=== PATIENT | female | born 1970 ===

== ENCOUNTER 2025-08-05 08:52 | Outpatient (AMB) | payer OTHER, SELFPAY ==
--- NOTE | 2025-08-05 08:55 | A.PHYSOV_ITS ---
Vital Signs 08/05/25 08:58 Height 4 ft 11 in Weight 172 lb BMI 34.7 Intake Visit Reasons: B/L KNEE INJECTIONS Intake Note: Patient is a 55 year old female here for bilateral knee injection. 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 Allergies No Known Allergies Allergy (Verified 07/27/25 15:00) [facility] Surgical History S/P coronary artery stent placement Social History Alcohol intake: current Alcohol intake frequency: holidays/special occasions only Patient Tobacco Use Status: Never used Tobacco Physical Exam Vital Signs: BMI result Body Mass Index 34.7 Office Procedures AMB Knee Injection AMB Knee Injection Procedure Details: Bilateral Knee injection: The risks, benefits and complications of the left knee injection were discussed with the patient including but not limited to increased serum glucose, infection, nerve pain, fat atrophy, pigment augmentation, bleeding and pain. All questions were answered to the patient's satisfaction. Verbal consent was obtained. The patient was eager to proceed. Using aseptic technique with Betadine, ethyl chloride was then used to desensitize the skin. Using a 22-gauge needle 40 mg of Kenalog and 3 mL 2% lidocaine were injected into the knee joint. A Band-Aid was applied. Patient tolerated the procedure well without immediate complication. Postinjection instructions were given. The procedure was repeated on the right. Knee Injection - : Bilateral All charges added?: Procedure code (CPT) selection complete Office Meds Kenalog 40 mg/mL suspension for injection Performing Provider: JUDY Goff [facility] Administered by: JUDY Goff on 08/05/25 09:14 Dose Route Admin Location Dispensed Lot Number Expiration Date [facility] [employer] 40 mg intra-articular 1 mL [id number] [employer] Total Dispensed Waste 1 mL 0 % lidocaine (PF) 20 mg/mL (2 %) injection solution Performing Provider: JUDY Goff [facility] Administered by: JUDY Goff on 08/05/25 09:14 Dose Route Admin Location Dispensed Lot Number Expiration Date [facility] [employer] 60 mg intra-articular 50 mL [id number] Total Dispensed Waste 50 mL 0 % Assessment & Plan Assessment & Plan (1) Bilateral primary osteoarthritis of knee: Code(s): M17.0 - Bilateral primary osteoarthritis of knee Category: Medical Plan Ms. Robin is a 55-year-old female seen in evaluation today for bilateral knee osteoarthritis. Today she consented to bilateral knee corticosteroid injection. She was given post-injection instructions, recommend: Moist heat compresses for 15 minutes up to 5 times daily. Continue low-impact activities such as walking, biking and swimming. Follow-up with our office as needed Thank you for allowing me to participate in the care of your patient. Orders: Orders AMB Knee Injection Today M17.0 - Bilateral primary osteoarthritis of knee Coding Level of Care Code Procedure Only Diagnoses Bilateral primary osteoarthritis of knee M17.0 CPT Codes AMB Knee Injection - Hip/Bursa Injection - : Bilateral ([id number])
[2025-08-05 08:58] VITALS: BMI 34.7
--- OUTSIDE RECORDS SUMMARY | 2025-08-05 10:00 | XMS_ITS ---
Author Name [facility] Organization Unknown Care Team Organization Name Specialty Phone Email Start Date End Da constantin [facility] 07/13/2022 04/23/2024
--- OUTSIDE RECORDS SUMMARY | 2025-08-05 10:00 | XMS_ITS | Encounter Summary ---
Author Organization [facility] Address [address] [place] [address] Care Team Providers Care High Speed Operator Name Role Phone Nikki Miramontes MD Primary Care Provider [phone] Encounter Details Date Type Department Care Team (Late Contact Info) Description 07/24/2025 Results Follow-Up Gastroenterology - [address] [phone] Elana Miguel NP [address] [address] Social History Tobacco Use Types Packs/Day Years Used Date Smoking Tobacco: Never Smokeless Tobacco: Never Alcohol Use Standard Drinks/Week Comments Yes 0 (1 standard drink = 0.6 oz pur e alcohol) Comments No Sex and Gender Information Value Date Recorded Sex Assigned at Not on file Legal Sex Female 12:03 PM EST Gender Identity Not on file Sexual Orientation Not on file documented as of this encounter Plan of Treatment Upcoming Encounters Date Type Department Care Team (Late st Contact Info) Description 11/29/2025 9:20 AM EDT Office Visit [facility] [address] [facility] [address] [place] [phone] Shaq Tucker MD [address] [place] [address] [address] [place] [phone] documented as of this encounter Visit Diagnoses Not on filedocumented in this encounter Care Teams High Speed Operator Relationship Specialty Start Date End Date Nikki Miramontes MD [address] [facility] [place] [phone] PCP - General Internal Medicine 04/19/25 documented as of this encounter
--- OUTSIDE RECORDS SUMMARY | 2025-08-05 10:00 | XMS_ITS | Clinical Summary ---
Author Organization [place] [id number] Gu[address] jaime [facility] Building Address [address] [place] [address] Phone Care Team Providers Care Fabrication Lead Name Role Phone Nikki Miramontes MD Primary Care Provider [phone] Allergies No known active allergies Medications aspirin 81 mg chewable tablet Chew 1 tablet (81 mg total) 1 (one) time each day. 06/28/20 17 Active dulaglutide (Trulicity) 3 mg/0.5 mL pen injector injection Inject 3 mg as directed once a week 05/03/20 24 Active ezetimibe (ZETIA) 10 mg tablet Take 1 tablet (10 mg total) by mouth 1 (one) time each day. 04/24/20 24 Active glucose blood test strip USE TO TEST BLOOD SUGAR TWO TIMES A DAY 03/07/20 24 Active blood-glucose meter kit USE TO TEST BLOOD SUGAR TWO TIMES A DAY 09/20/19 20 Active UNABLE TO FIND Blood Glucose Calibration (EASY TOUCH HEALTHPRO CONTROL) Solution, Use to test machine .DX-E11.65 NIDDM. 12/25/19 17 Active lancets (Easy Touch Twist Lancets) 33 gauge misc Apply 1 Each topically 2 times daily. To test blood sugar.DX-E11.65 ,NIDDM. 12/25/19 17 Active ferrous sulfate 325 mg (65 mg elemental iron) tablet Take 1 tablet (325 mg total) by mouth 2 (two) times a day. 60 each 2 09/30/19 25 Active pantoprazole (PROTONIX) 20 mg EC tablet TAKE ONE TABLET BY MOUTH ONCE DAILY 90 tablet 1 11/22/19 25 Active metoprolol tartrate (LOPRESSOR) 25 mg tablet TAKE 1/2 TABLET BY MOUTH TWO TIMES A DAY 90 tablet 04/15/20 25 Active glipiZIDE (GLUCOTROL) 5 mg tablet TAKE ONE TABLET BY MOUTH TWO TIMES A DAY BEFORE MEALS 180 tablet 06/18/20 25 Active pravastatin (PRAVACHOL) 10 mg tabletIndicati ons:Hyperlipid emia with target LDL less than 100 Take 1 tablet (10 mg total) by mouth 1 (one) time each day. 90 tablet 06/19/20 25 Active meloxicam (MOBIC) 7.5 mg tablet TAKE ONE TABLET BY MOUTH ONCE DAILY NEEDED FOR PAIN 90 tablet 07/04/20 25 Active metFORMIN (GLUCOPHAGE) 1,000 mg tablet TAKE ONE TABLET BY MOUTH TWICE A DAY WITH MEALS 180 tablet 07/16/20 25 Active lisinopriL (PRINIVIL,ZEST RIL) 2.5 mg tablet TAKE ONE TABLET BY MOUTH EVERY DAY 90 tablet 07/16/20 25 Active lisinopriL (PRINIVIL,ZEST RIL) 2.5 mg tablet TAKE ONE TABLET BY MOUTH ONCE DAILY 90 tablet 04/17/20 25 025 Discontinued metFORMIN (GLUCOPHAGE) 1,000 mg tablet TAKE ONE TABLET BY MOUTH TWICE A DAY WITH MEALS 180 tablet 04/17/20 25 025 Discontinued Active Problems Problem Noted Date Diagnosed Date PAD (peripheral artery disease) ([facility] V24) Assessment & Plan (01/31/2025 3:11 PM EDT): Continue aspirin and statin therapy. She will follow-up with vascular surgery. Orders: Ambulatory referral to Vascular Surgery; Future Anemia 07/30/2024 Assessment & Plan (01/31/2025 3:11 PM EDT): We will check her expressed to her the importance of following up with gastroenterology. Referral to GI placed. Continue iron supplements. Avoid NSAIDs. She states she only uses meloxicam as needed. Vies her to stop but she does not want to. She is on pantoprazole. Orders: Ambulatory referral to Gastroenterology; Future Microalbuminuria 10/13/2020 GERD (gastroesophageal reflux disease) 8 Old CO (myocardial infarction) 05/12/2018 Assessment & Plan (01/31/2025 3:11 PM EDT): She denies any anginal symptoms. Clinically she is euvolemic. I placed referral to cardiology for routine follow-up. Continue current regimen of aspirin, ezetimibe, pravastatin, metoprolol, lisinopril. Orders: Ambulatory referral to Cardiology; Future Presence of stent in LAD coronary artery 018 DM (diabetes mellitus), type 2 with renal complications ([facility] V24, [facility] V28) 12/24/2016 Assessment & Plan (01/31/2025 3:11 PM EDT): She will follow diabetic diet. Will check her A1c levels. Continue dulaglutide, metformin, glipizide. She is on KAILA inhibitor for microalbuminuria. Orders: Hemoglobin A1c; Future Basic metabolic panel; Future Lipid panel with reflex to direct LDL; Future Aspartate aminotransferase; Future Alanine aminotransferase; Future Fibroids 10/19/2010 Menorrhagia 10/19/2010 Choroidal nevus 11/18/2009 Hyperlipidemia with target LDL less than 100 Overview (07/30/2024): IMO update Obesity 08/09/2008 Encounters Date Type Department Care Team Description 07/29/2025 Telephone [facility] - [address] [place] [phone] Nikki Miramontes MD 07/25/2025 Telephone Internal Medicine - [address] [phone] Aide Klein [place] 07/24/2025 Results Follow-Up Gastroenterology - [address] [place] [phone] Elana Miguel NP 07/19/2025 10:25 AM EST Lab Draw Station - [address] Anemia due to vitamin B12 deficiency, unspecified B12 deficiency type; Type 2 diabetes mellitus with diabetic microalbuminuria, without long-term current use of insulin ([facility] V24, [facility] V28) 07/19/2025 Results Follow-Up Internal Medicine - [place] [address] [place] [phone] Nancy Pandya [place] 06/28/2025 10:00 AM EDT Consult Gastroenterology - [place] [address] [place] [address] Elana Miguel, JOHN Anemia due to vitamin B12 deficiency, unspecified B12 deficiency type (Primary Dx) from Last 3 Months Immunizations Immunization Administration Dates Next Due H1N1 Inj Preservative Free 08/18/2009 Influenza Quadravalent, MDCK , 0.5ml, preservative free (Flucelvax) 6mo and older 07/01/2023,05/11/2019 Influenza Quadravalent, MDCK , 0.5ml, with preservative (Flucelvax) 6mo and older 05/12/2018 Influenza trivalent, 0.5mL, preservative free (Fluarix; FluLaval; Fluzone) ages 6mo and older (Afluria) 3 years and older 07/05/2014,08/10/2013,08/04/2012,08/04,08/18/2009 Pneumococcal polysaccharide 23 valent (Pneumovax 23) 2yo and older 01/25/2014 Td Tetanus diptheria (Tdvax) 7yo and older 11/02/2019 Tdap Tetanus diptheria acell ular pertussis (Boostrix; Adacel) 7yo and older 08/09/2008 Surgical History Surgery Date Site/Laterality Comments WISDOM TOOTH EXTRACTION PROCEDURE: HISTORICAL WISDOM TEETH EXTRACTION Medical History Medical History Date Comments Type II or unspecified type diabetes mellitus without mention of complication, uncontrolled 08/18/2009 DX:Type II or unspecified t ype diabetes mellitus without mention of complication, uncontrolled Menorrhagia 10/19/2010 DX:Menorrhagia Fibroids 10/19/2010 DX:Fibroids Old CO (myocardial infarction) 05/12/2018 D X:Old CO (myocardial infarction) GERD (gastroesophageal reflux disease) 05/12/2018 DX:GERD (gastroesophageal reflux disease) GERD (gastroesophageal reflux disease) 05/12/2018 DX:GERD (gastroesophageal reflux disease) Presence of stent in LAD cor onary artery 05/12/2018 DX:Presence of stent in LAD coronary artery DM (diabetes mellitus), type 2 with renal complications ([facility]/HCC V24, CMS/HCC V28) 12/24/2016 DX:DM (diabetes mellitus), t ype 2 with renal complications ([facility]) Microalbuminuria 10/13/2020 DX:Microalbumin uria Anemia DX:Anemia Family History Medical History Relation Name Comments No Known Problems Aunt Diabetes Brother 1 No Known Problems Brother 2 No Known Problems Brother 3 Other: homicide Father No Known Problems Maternal Grandfather Cataracts Maternal Grandmother Hypertension Maternal Grandmother Diabetes Mother Hypertension Mother No Known Problems Other No Known Problems Paternal Grandfather No Known Problems Paternal Grandmother No Known Problems Sister No Known Problems Uncle Blindness Neg Hx Breast cancer Neg Hx Glaucoma Neg Hx Macular degeneration Neg Hx Strabismus Neg Hx Relation Name Status Comments Aunt Brother 1 Alive eldest is healt hy Brother 2 Alive Rafat, younger , diabetic Brother 3 Alive Juan Jose, younger, also diabetic Father murdered in [facility] Maternal Grandfather Maternal Grandmother Alive HTN Mother Alive HTN Other Paternal Grandfather Diabete s Paternal Grandmother Sister Uncle Social History Tobacco Use Types Packs/Day Years Used Date Smoking Tobacco: Never Smokeless Tobacco: Never Tobacco Cessation:Counseling Given: Not Answered Alcohol Use Standard Drinks/Week Comments Yes 0 (1 standard drink = 0.6 oz pur e alcohol) Comments No Sex and Gender Information Value Date Recorded Sex Assigned at Not on file Legal Sex Female 12:03 PM EST Gender Identity Not on file Sexual Orientation Not on file Obstetrics History Last Filed Vital Signs Vital Sign Reading Time Taken Comments Blood Pressure 120/40 06/28/2025 9:48 AM EDT Pulse 73 06/28/2025 9:48 AM EDT Temperature - - Respiratory Rate - - Oxygen Saturation 98% 06/28/2025 9:48 AM EDT Inhaled Oxygen Concentration - - Weight 75.8 kg (167 lb 3.2 oz) 06/28/2025 9:48 A M EDT Height 149.9 cm (4' 11 ) 06/28/2025 9:48 AM EDT Body Mass Index 33.77 06/28/2025 9:48 AM EDT Plan of Treatment Upcoming Encounters Date Type Department Care Team (Late st Contact Info) Description 11/29/2025 9:20 AM EDT Office Visit [facility] - [address] [place] [address] Shaq Tucker MD [address] [place] [address] [address] [place] [phone] Health Maintenance Due Date Last Done Comments Diabetes: Annual Foot Exam 1978 Diabetes: Annual Retina Eye Exam 1978 Hepatitis B Vaccines (1 of 3 - 19+ 3-dose series) 1987 Pneumococcal Vaccine: 50+ Years (2 of 2 - PCV) 01/25/2015 01/25/2014 RSV Immunization Adult Patients (1 - Risk 50-74 years 1-dose series) 2018 Breast Cancer Screening 08/19/2019 08/19/2017 HIV Screening 08/14/2022 Social Influencers of Health Screening 08/14/2022 Depression Screening 09/05/2024 COVID-19 Vaccine ( season) 2025 03/25/2022, 08/19/2021, 11/27/2020, Additional history exists Influenza Vaccine (#1) 2025 , 05/11/2019, 05/12/2018, Additional history exists Cervical Cancer Screening: HPV 06/06/2025 06/06/2020 Diabetes: Annual Urine Albumin-Creatinine Ratio (uACR) 06/07/2025 06/07/2024 Diabetes: Blood Sugar Control Test (HGBA1C) 01/16/2026 07/19/2025, 06/07/2024, 06/07/2024 Diabetes: Annual GFR (Glomerular Filtration Rate) 07/19/2026 07/19/2025, 08/17/2024, 06/07/2024, Additional history exists Cholesterol Screening (Lipid Panel) 07/19/2030 07/19/2025, 08/17/2024, 06/07/2024, Additional history exists DTaP,Tdap,and Td Vaccines (4 - Td or Tdap) 04/15/2032 04/15/2022, 11/02/2019, 08/09/2008 Colorectal Cancer Screening: Colonoscopy 12/29/2032 12/29/2022 Hepatitis C Screening Completed 03/29/2016 Zoster Vaccines Completed 09/22/2023, 04/22/2022 HIB Vaccines Aged Out No longer eligi ble based on patient's age to complete this topic HPV Vaccines Aged Out No longer eligi ble based on patient's age to complete this topic Hepatitis A Vaccines Aged Out No long er eligible based on patient's age to complete this topic IPV Vaccines Aged Out No longer eligi ble based on patient's age to complete this topic MMR Vaccines Aged Out No longer eligi ble based on patient's age to complete this topic Meningococcal ACWY Vaccine Aged Out N o longer eligible based on patient's age to complete this topic Meningococcal B Vaccine Aged Out No l onger eligible based on patient's age to complete this topic RSV Immunization Patients Under 20 months Aged Out No longer eligible based on patient's age to complete this topic Varicella Vaccines Aged Out No longer eligible based on patient's age to complete this topic Procedures Procedure Name Priority Date/Time Associated Diagnosis Comments CBC WITH AUTO DIFFERENTIAL Routine 07/19/2025 10:24 AM EST Anemia due to vitamin B12 deficiency, unspecified B12 deficiency type HEMOGLOBIN A1C Routine 07/19/2025 10:24 AM EST Type 2 diabetes mellitus with diabetic microalbuminuria, without long-term current use of insulin ([facility] V24, [facility] V28) BASIC METABOLIC PANEL Routine 07/19/2025 10:24 AM EST Type 2 diabetes mellitus with diabetic microalbuminuria, without long-term current use of insulin (CMS/HCC V24, [facility] V28) LIPID PANEL WITH REFLEX TO DIRECT LDL Routine 07/19/2025 10:24 AM EST Type 2 diabetes mellitus with diabetic microalbuminuria, without long-term current use of insulin (CMS/HCC V24, [facility] V28) ASPARTATE AMINOTRANSFERASE Routine 07/19/2025 10:24 AM EST Type 2 diabetes mellitus with diabetic microalbuminuria, without long-term current use of insulin (CMS/HCC V24, [facility] V28) ALANINE AMINOTRANSFERASE Routine 025 10:24 AM EST Type 2 diabetes mellitus with diabetic microalbuminuria, without long-term current use of insulin ([facility] V24, [facility] V28) VITAMIN B12 AND FOLATE Routine 10:24 AM EST Anemia due to vitamin B12 deficiency, unspecified B12 deficiency type INTRINSIC FACTOR BLOCKING ANTIBODY Routine 07/19/2025 10:24 AM EST Anemia due to vitamin B12 deficiency, unspecified B12 deficiency type ANTI-PARIETAL ANTIBODY Routine 10:24 AM EST Anemia due to vitamin B12 deficiency, unspecified B12 deficiency type CBC AND DIFFERENTIAL Routine 07/19/2025 10:24 AM EST Anemia due to vitamin B12 deficiency, unspecified B12 deficiency type IRON AND TIBC Routine 07/19/2025 10:24 AM EST Anemia due to vitamin B12 deficiency, unspecified B12 deficiency type FERRITIN Routine 07/19/2025 10:24 AM EST Anemia due to vitamin B12 deficiency, unspecified B12 deficiency type URINE ALBUMIN CREATININE RATIO Routine 06/07/2024 COLONOSCOPY Routine 12/29/2022 HPV Routine 06/06/2020 SCR MAMMO BI INCL CAD Routine 08/19/2017 2:20 PM EST Encounter for screening mammogram for malignant neoplasm of breast HEPATITIS C SCREENING Routine 03/29/2016 from Last 3 Months or Most Recently Relevant to Health Maintenance Results * (ABNORMAL) Vitamin B12 and folate (07/19/2025 10:24 AM EST) [facility] Vitamin B-12 751 250 - 900 pcg/mL LAB CHEMISTRY METHOD 07/19/2025 3:35 PM EST [facility] Folate 19.2(H) 2.8 - 17.0 ng/ml LAB CHEMISTRY METHOD 07/19/2025 3:35 PM EST [facility] Blood Venous blood specimen / Unknown Venipuncture / Unknown 07/19/2025 10:24 AM EST 07/19/2025 10:24 AM EST Elana Miguel [employer] LAB BLOOD ORDERABLES Final Resu lt [facility] [address] [place] [address], [place] [phone] * (ABNORMAL) Lipid panel with reflex to direct LDL (07/19/2025 10:24 AM EST) Cholesterol 247(H) 0 - 200 mg/dL LAB CHEMISTRY METHOD 07/19/2025 3:35 PM [facility] Triglycerides 175(H) 0 - 150 mg/dL LAB CHEMISTRY METHOD 07/19/2025 3:35 PM [facility] HDL 72 >=40 mg/dL LAB CHEMISTRY METHOD 07/19/2025 3:35 PM [facility] LDL Calculated 140(H) 0 - 100 mg/dL LAB CHEMISTRY METHOD 07/19/2025 3:35 PM [facility] Comment:Estimated LDL Calcul ated using equation: Total cholesterol - HDL cholesterol - (Triglycerides/5) VLDL Cholesterol Branden 35 mg/dL LAB CHEMISTRY METHOD 07/19/2025 3:35 PM [facility] Non HDL Chol. (LDL+VLDL) 175(H) <145 mg/dL LAB CHEMISTRY METHOD 07/19/2025 3:35 PM [facility] Chol/HDL Ratio 3.4 0.0 - 4.4 LAB CHEMISTRY METHOD 07/19/2025 3:35 PM [facility] Blood Venous blood specimen / Unknown Venipuncture / Unknown 07/19/2025 10:24 AM EST 07/19/2025 10:24 AM EST us Tre Dhaliwal MD LAB BLOOD ORDERABLES Orin yeni Result [facility] [address] [place] [address], [place] [phone] * (ABNORMAL) CBC auto differential (07/19/2025 10:24 AM EST) WBC 12.1(H) 4.8 - 10.8 K/mcL LAB HEMETOLOGY METHOD 07/19/2025 2:22 PM [facility] RBC 4.50 3.80 - 4.80 M/mcL LAB HEMETOLOGY METHOD 07/19/2025 2:22 PM [facility] Hemoglobin 11.7 11.5 - 16.0 g/dL LAB HEMETOLOGY METHOD 07/19/2025 2:22 PM [facility] Hematocrit 38.0 35.0 - 47.0 % LAB HEMETOLOGY METHOD 07/19/2025 2:22 PM [facility] MCV 84.6 79.0 - 98.0 FL LAB HEMETOLOGY METHOD 07/19/2025 2:22 PM [facility] MCH 26.1(L) 27.0 - 32.0 pcg LAB HEMETOLOGY METHOD 07/19/2025 2:22 PM [facility] MCHC 30.8(L) 32.0 - 37.0 g/dL LAB HEMETOLOGY METHOD 07/19/2025 2:22 PM [facility] RDW 13.6 11.0 - 15.0 % LAB HEMETOLOGY METHOD 07/19/2025 2:22 PM [facility] Platelets 342 130 - 400 K/mcL LAB HEMETOLOGY METHOD 07/19/2025 2:22 PM [facility] MPV 9.9 7.0 - 11.0 FL LAB HEMETOLOGY METHOD 07/19/2025 2:22 PM [facility] NRBC 0.0 <1.0 % LAB HEMETOLOGY METHOD 07/19/2025 2:22 PM [facility] NRBC Absolute 0.00 <0.10 K/mcL LAB HEMETOLOGY METHOD 07/19/2025 2:22 PM [facility] Neutrophils Relative 63.1 % LAB HEMETOLOGY METHOD 07/19/2025 2:22 PM [facility] Lymphocytes Relative 28.5 % LAB HEMETOLOGY METHOD 07/19/2025 2:22 PM [facility] Monocytes Relative 6.1 % LAB HEMETOLOGY METHOD 07/19/2025 2:22 PM [facility] Eosinophils Relative 1.3 % LAB HEMETOLOGY METHOD 07/19/2025 2:22 PM [facility] Basophils Relative 0.7 % LAB HEMETOLOGY METHOD 07/19/2025 2:22 PM [facility] Immature Granulocytes Relative 0.3 % LAB HEMETOLOGY METHOD 07/19/2025 2:22 PM [facility] Neutrophils Absolute 7.60(H) 1.50 - 7.00 K/mcL LAB HEMETOLOGY METHOD 07/19/2025 2:22 PM [facility] Lymphocytes Absolute 3.44 1.00 - 5.00 K/mcL LAB HEMETOLOGY METHOD 07/19/2025 2:22 PM [facility] Monocytes Absolute 0.74 0.20 - 1.00 K/mcL LAB HEMETOLOGY METHOD 07/19/2025 2:22 PM [facility] Eosinophils Absolute 0.16 0.00 - 0.50 K/mcL LAB HEMETOLOGY METHOD 07/19/2025 2:22 PM [facility] Basophils Absolute 0.09 0.00 - 0.20 K/[facility] LAB HEMETOLOGY METHOD 07/19/2025 2:22 PM EST [facility] Immature Granulocytes Absolute 0.04(H) 0.00 - 0.03 K/[facility] LAB HEMETOLOGY METHOD 07/19/2025 2:22 PM EST [facility] Blood Venous blood specimen / Unknown Venipuncture / Unknown 07/19/2025 10:24 AM EST 07/19/2025 10:24 AM EST [facility] BLOOD ORDERABLES Final Resu lt Performing Organization Address City/[facility]/ZIP Co de Phone Number [facility] [address] [place] [address], [place] [phone] * Intrinsic factor blocking antibody (07/19/2025 10:24 AM EST) Pathologist [facility] Intrinsic Factor Blocking Antibody Negative Negative 07/22/2025 8:41 PM EST [facility] Comment: Positive in 50% of persons with pernicious anemia. Very high serum levels of vitamin B12 may give false positive results for intrinsic factor antibody. No sample should be collected from a patient who has received vitamin B12 injection therapy within the past week. Test performed at [facility], [address] , [place] [address] Shante Hayes MD, PhD - [employer] Blood Venous blood specimen / Unknown Venipuncture / Unknown 07/19/2025 10:24 AM EST 07/19/2025 10:24 AM EST Elana Miguel [employer] LAB BLOOD ORDERABLES Final Resu lt [facility] [address] [place], [place] [id number] * (ABNORMAL) Iron and TIBC (07/19/2025 10:24 AM EST) Pathologist [facility] Iron 45 40 - 150 mcg/dL LAB CHEMISTRY METHOD 07/19/2025 3:35 PM EST [facility] TIBC 382 250 - 450 mcg/dL LAB CHEMISTRY METHOD 07/19/2025 3:35 PM EST [facility] Iron Saturation 12(L) 15 - 50 % LAB CHEMISTRY METHOD 07/19/2025 3:35 PM EST [facility] Blood Venous blood specimen / Unknown Venipuncture / Unknown 07/19/2025 10:24 AM EST 07/19/2025 10:24 AM EST Elana Lamont [employer] LAB BLOOD ORDERABLES Final Resu lt [facility] [address] [place] [address], [place] [phone] * Anti-parietal antibody (07/19/2025 10:24 AM EST) Gastric Parietal Cell Ab 17.8 <=20 UNITS 07/26/2025 1:09 PM EST [facility] Comment: Interpretation: Negative Test performed at [facility], [address], [place] [address] Shante Hayes MD, PhD - [employer] Blood Venous blood specimen / Unknown Venipuncture / Unknown 07/19/2025 10:24 AM EST 07/19/2025 10:24 AM EST Elana Miguel [employer] LAB BLOOD ORDERABLES Final Resu lt [facility] [address] [place] [address] * Alanine aminotransferase (07/19/2025 10:24 AM EST) ALT (SGPT) 26 10 - 60 unit/L LAB CHEMISTRY METHOD 07/19/2025 2:59 PM EST [facility] Blood Venous blood specimen / Unknown Venipuncture / Unknown 07/19/2025 10:24 AM EST 07/19/2025 10:24 AM EST us Tre Dhaliwal MD LAB BLOOD ORDERABLES Orin l Result [facility] [address] [place] [address], [place] [phone] * Aspartate aminotransferase (07/19/2025 10:24 AM EST) [facility] AST (SGOT) 13 10 - 42 unit/L LAB CHEMISTRY METHOD 07/19/2025 3:35 PM EST [facility] Blood Venous blood specimen / Unknown Venipuncture / Unknown 07/19/2025 10:24 AM EST 07/19/2025 10:24 AM EST Tre Dhaliwal MD LAB BLOOD ORDERABLES Orin l Result Performing Organization Address [facility]/ZIP Co de Phone Number [facility] [address] [place] [address], [place] [phone] * (ABNORMAL) Hemoglobin A1c (07/19/2025 10:24 AM EST) [facility] Hemoglobin A1C 9.0(H) <6.5 % LAB CHEMISTRY METHOD 07/19/2025 8:29 PM EST [facility] Mean Bld Glu Estim. 212 mg/dL LAB CHEMISTRY METHOD 07/19/2025 8:29 PM EST [facility] Blood Venous blood specimen / Unknown Venipuncture / Unknown 07/19/2025 10:24 AM EST 07/19/2025 10:24 AM EST Tre Dhaliwal MD LAB BLOOD ORDERABLES Orin l Result Performing Organization Address City/[facility]/ZIP Co de Phone Number [facility] [address] [place] [address], [place] [phone] * Ferritin (07/19/2025 10:24 AM EST) Ferritin 18 8 - 252 ng/mL LAB CHEMISTRY METHOD 07/19/2025 3:35 PM [facility] Blood Venous blood specimen / Unknown Venipuncture / Unknown 07/19/2025 10:24 AM EST 07/19/2025 10:24 AM EST Elana Miguel [employer] LAB BLOOD ORDERABLES Final Resu lt [facility] [address] [place] [address], * (ABNORMAL) Basic metabolic panel (07/19/2025 10:24 AM EST) Pathologist [facility] Sodium 137 133 - 145 mmol/L LAB CHEMISTRY METHOD 07/19/2025 3:35 PM [facility] Potassium 3.6 3.5 - 5.5 mmol/L LAB CHEMISTRY METHOD 07/19/2025 3:35 PM [facility] Chloride 102 96 - 110 mmol/L LAB CHEMISTRY METHOD 07/19/2025 3:35 PM [facility] CO2 27 21 - 32 mmol/L LAB CHEMISTRY METHOD 07/19/2025 3:35 PM [facility] Anion Gap 8 3 - 11 LAB CHEMISTRY METHOD 07/19/2025 3:35 PM [facility] Glucose 113(H) 70 - 100 mg/dL LAB CHEMISTRY METHOD 07/19/2025 3:35 PM [facility] BUN 8 5 - 25 mg/dL LAB CHEMISTRY METHOD 07/19/2025 3:35 PM [facility] Creatinine 0.52 0.50 - 1.10 mg/dL LAB CHEMISTRY METHOD 07/19/2025 3:35 PM [facility] eGFR 109 >=60 mL/min/1. 73m2 LAB CHEMISTRY METHOD 07/19/2025 3:35 PM EST [facility] Comment:Calculation based on the Chronic Kidney Disease Epidemiology Collaboration (CKD-EPI) equation refit without adjustment for race. BUN/Creatinine Ratio 15.4 LAB CHEMISTRY METHOD 07/19/2025 3:35 PM EST [facility] Calcium 9.2 8.5 - 10.5 mg/dL LAB CHEMISTRY METHOD 07/19/2025 3:35 PM EST [facility] Blood Venous blood specimen / Unknown Venipuncture / Unknown 07/19/2025 10:24 AM EST 07/19/2025 10:24 AM EST Tre Dhaliwal MD LAB BLOOD ORDERABLES Orin l Result [facility] [address] [place] [address], * Urine Albumin Creatinine Ratio (06/07/2024) Pathologist [facility] Urine Albumin Creatinine Ratio abstracted Historical Provider HEALTH MAINTENANCE Final Result * Colonoscopy (12/29/2022) [facility] Colonoscopy abstracted, no interpretation Anatomical Region Laterality Modality Other [facility] Provider HEALTH MAINTENANCE Final Result * Cervical Cancer Screening: HPV (06/06/2020) [facility] Cervical Cancer Screening: HPV abstracted, negative Historical Provider HEALTH MAINTENANCE Final Result * SCR MAMMO BI INCL CAD (08/19/2017 2:20 PM EST) Anatomical Region Laterality Modality Radiographic Stephanie ging 08/13/2016 11:4 9 AM EST Narrative 08/22/2017 11:19 AM EST This is a summary report. The complete report is available in the patient's medical record. If you cannot access the medical record, please contact the sending organization for a detailed fax or copy. Full field digital screening mammography, reviewed with CAD and compared to previous. The breasts are composed of fatty and fibroglandular tissue. No suspicious mass, architectural distortion or suspicious calcifications are identified. IMPRESSION: : No mammographic evidence of malignancy. BIRADS 1-Negative; N. 5 year breast cancer risk assessment 0.9 % Lifetime breast cancer risk assessment 9.2 % Breast cancer risk category Low (<15%) Procedure Note Michelle Mercado MD - 10/10/2023 This is a summary report. The complete report is available in thepatient's medical record. If you cannot access the medical record, pleasecontact the sending organization for a detailed fax or copy. Full field digital screening mammography, reviewed with CAD and comparedto previous. The breasts are composed of fatty and fibroglandular tissue.No suspicious mass, architectural distortion or suspicious calcificationsare identified. IMPRESSION: : No mammographic evidence of malignancy. BIRADS 1-Negative; N. 5 year breast cancer risk assessment 0.9 % Lifetime breast cancer risk assessment 9.2 % Breast cancer risk category Low (<15%) Mona White MD IMG XR PROCEDURES Final Res ult * Hepatitis C Screening (03/29/2016) Hepatitis C Screening abstracted Historical Provider HEALTH MAINTENANCE Final Result from Last 3 Months or Most Recently Relevant to Health Maintenance Insurance [facility] Care Teams Fabrication Lead Relationship Specialty Start Date End Date Nikki Miramontes MD [address] [place] [address] PCP - General Internal Medicine 04/19/25
--- OUTSIDE RECORDS SUMMARY | 2025-08-05 10:00 | XMS_ITS | Encounter Summary ---
Author Organization [facility] Address [address] [place] [address] Care Team Providers Care Pelt Salter Name Role Phone Nikki Miramontes MD Primary Care Provider [phone] Reason for Visit * Reason Onset Date Comments Results 07/19/2025 Lmtcb on voice m ail , please transfer call to ext : [phone] thanks. MAXIMILIANO Encounter Details Date Type Department Care Team (Late Contact Info) Description 07/19/2025 Results Follow-Up Internal Medicine - [facility] [address] [place] [phone] Nancy Pandya MA Social History Tobacco Use Types Packs/Day Years [...] Description 11/29/2025 9:20 AM EDT Office Visit [facility] [address] [facility] [address] [place] [phone] Shaq Tucker MD [address] [place] [address] [address] [place] [phone] documented as of this encounter Visit Diagnoses Not on filedocumented in this encounter Care Teams Pelt Salter Relationship Specialty Start Date End Date Nikki Miramontes MD [address] [address] PCP - General Internal Medicine 04/19/25 documented as of this encounter
== END 2025-08-05 09:19 | disposition home or self-care (01) ==
LOC: HO.HPHYS 08:53
PROVIDERS: Visit Provider Physician Assistant
DX: M17.0 Bilateral primary osteoarthritis of knee (principal)
CPT/HCPCS: 20610

== ENCOUNTER → 2025-08-05 08:52 | Outpatient (BNVA) | payer OTHER, SELFPAY | PROVIDERS: Visit Provider Physician Assistant | DX: M17.0 Bilateral primary osteoarthritis of knee (principal) | CPT/HCPCS: 20610; J2003; J3301 ==